=== PATIENT | female | born 1985 | race Caucasian/White ===

== ENCOUNTER 2017-05-31 20:38 | Emergency (ER) | payer MEDICAID, OTHER, SELFPAY ==
[2017-05-31] MEDS ORDERED: Meclizine HCl 25 MG TAB ONE (21:18)
[2017-05-31] MEDS ORDERED: Ondansetron ODT 4 MG TAB ONE (21:18)
== END 2017-05-31 21:27 | disposition home or self-care (01) ==
LOC: NAV ERS 20:38
DX: H81.13 Benign paroxysmal vertigo, bilateral (principal); E03.9 Hypothyroidism, unspecified; Z79.899 Other long term (current) drug therapy
CPT/HCPCS: 99283; Q0162